=== PATIENT | female | born 1950 | race Caucasian/White ===

== ENCOUNTER 2018-06-09 06:55 | Day surgery (SDC) | payer OTHER ==
[2018-06-09] MEDS ORDERED: PROPOFOL 40 ML (08:25)
[2018-06-09] MEDS ORDERED: LIDOCAINE 2% (SDV) 5 ML INJ (08:25)
== END 2018-06-09 10:47 | disposition home or self-care (01) ==
LOC: GIL 06:55
DX: Z12.11 Encounter for screening for malignant neoplasm of colon (principal); K29.30 Chronic superficial gastritis without bleeding; K64.8 Other hemorrhoids; I10 Essential (primary) hypertension
CPT/HCPCS: 43239; 88305; 88312